=== PATIENT | female | born 1975 | race Caucasian/White ===

== ENCOUNTER → 2016-08-16 | Outpatient (CLI) | payer OTHER ==
[~2016-08-16] MED LIST: ALLEGRA-D 12 HO1 TER PO; LEVOTHYROXIN0.025 MG PO; NASONEX SPRAY INH; PRENATAL VITAMI1 TA5 PO
== END ==
LOC: MC.RAD 08-03 15:00
DX: Z12.31 Encounter for screening mammogram for malignant neoplasm of breast (principal); N64.89 Other specified disorders of breast

== ENCOUNTER → 2016-08-18 | Outpatient (CLI) | payer OTHER | LOC: MC.RAD 13:50 | DX: Z12.39 Encounter for other screening for malignant neoplasm of breast (principal) ==

== ENCOUNTER → 2017-08-21 | Outpatient (CLI) | payer BC | LOC: MC.RAD 13:49 | DX: Z12.31 Encounter for screening mammogram for malignant neoplasm of breast (principal) ==

== ENCOUNTER → 2018-08-22 | Outpatient (CLI) | payer BC | LOC: MC.RAD 14:13 | DX: Z12.31 Encounter for screening mammogram for malignant neoplasm of breast (principal) ==

== ENCOUNTER → 2019-08-26 | Outpatient (CLI) | payer BC | LOC: MC.RAD 09:18 | DX: Z12.31 Encounter for screening mammogram for malignant neoplasm of breast (principal) ==

== ENCOUNTER 2020-09-08 20:53 | Emergency (ER) | payer BC ==
[~2020-09-08] VITALS: Ht 177.8 cm; Wt 77.3 kg
[2020-09-08 21:12] VITALS: BP 111/77; TEMP 97.8
[2020-09-08 21:53] VITALS: PULSE 72
== END 2020-09-08 21:54 | disposition home or self-care (01) ==
LOC: COL.ER 20:53
DX: H61.21 Impacted cerumen, right ear (principal); E03.9 Hypothyroidism, unspecified; F17.210 Nicotine dependence, cigarettes, uncomplicated; Z79.890 Hormone replacement therapy

== ENCOUNTER → 2020-11-04 | Outpatient (CLI) | payer BC | LOC: MC.RAD 14:27 | DX: Z12.31 Encounter for screening mammogram for malignant neoplasm of breast (principal) ==